=== PATIENT | female | born 1970 | race Caucasian/White ===

== ENCOUNTER 2017-01-30 11:47 | Emergency (ER) | payer SELFPAY ==
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
[2017-01-30] MEDS: ACETAMINOPHEN 1,000 MG/100 ML BTL IVPB ONE (12:08)
--- NOTE | 2017-01-31 07:50 | CT SCAN REPORT ---
EXAM: CT OF THE BRAIN WITHOUT CONTRAST HISTORY: SEVERE HEADACHE. TECHNIQUE: Sequential axial images were obtained from the foramen magnum to the vertex without contrast administration. FINDINGS: The brain volume is normal. There is no large territorial infarct, hemorrhage, mass effect, or midline shift. There is likely a partially calcified colloid cyst the third ventricle. The orbits appear normal. There is left maxillary sinus disease. IMPRESSION: 1. NO ACUTE INTRACRANIAL ABNORMALITY IS APPRECIATED. 2. LEFT MAXILLARY SINUS DISEASE. 3. THERE IS LIKELY A PARTIALLY CALCIFIED COLLOID CYST IN THE [place] OF [place]. JOB NUMBER: [id number] MTDD
--- NOTE | 2017-01-31 07:53 | CT SCAN REPORT ---
EXAM: CT OF THE CERVICAL SPINE HISTORY: INJURY. TECHNIQUE: Sequential axial images were obtained through the cervical spine without intravenous contrast administration. FINDINGS: There is straightening of the normal cervical lordosis. There is posterior disk spur complex at C4-C5, C5-C6, and C6-C7 levels. This produces bilateral neural foraminal narrowing. IMPRESSION: STRAIGHTENING OF THE NORMAL CERVICAL LORDOSIS. THERE IS DISK SPUR COMPLEX AT C4 -C5, C5-C6 AND C6-C7 LEVELS. THIS PRODUCES BILATERAL NEURAL FORAMINAL NARROWING. NO EVIDENCE OF FRACTURE, SUBLUXATION OR PERCHED FACET. JOB NUMBER: [id number] [facility]
== END 2017-01-30 13:34 | disposition home or self-care (01) ==
LOC: ER 11:47
DX: S16.1XXA Strain of muscle, fascia and tendon at neck level, initial encounter (principal); R51 Headache; V43.62XA Car passenger injured in collision with other type car in traffic accident, initial encounter; Y92.411 Interstate highway as the place of occurrence of the external cause
CPT/HCPCS: 70450; 72125; 96365; 99284